=== PATIENT | female | born 1985 | race Caucasian/White ===

== ENCOUNTER → 2017-02-05 | Outpatient (CLI) | payer MEDICAID ==
--- NOTE | 2017-02-05 16:42 | Diagnostic Imaging Report ---
INDICATION: Anatomical survey. TECHNIQUE: Multiple real-time grayscale images were obtained over the gravid uterus. COMPARISON: None FINDINGS: Single live intrauterine at 27 weeks 1 day by today's sonographic measurements. presentation is breech. Placenta is located posteriorly within the fundus with no placenta previa. Normal three-vessel umbilical cord is noted. Normal amniotic fluid index measuring 13.1 cm. The cervix measures 3.9 cm and appears closed. Good visualization of the stomach, kidneys, bladder, aorta, brain, cord insertion, four-chamber heart, spine, and extremities. Biometrical measurements are as follows: Biparietal 6.78 cm, age 27 weeks 3 days. Head circumference 25.1 cm, age 27 weeks 2 days. Abdominal circumference 23.3 cm, age 27 weeks 5 days. Femur length 4.7 cm, age 25 weeks 5 days. Sonographic estimate age: 27 weeks 1 days. Sonographic estimated date of delivery: 05/06/2017. Estimated Weight: 1002 gm (+/- 146 gm). LMP percentile: 20%. heart rate: 147 beats per minute. number: 1 of 1. IMPRESSION: Single live intrauterine at 27 weeks 1 day by sonographic measurements. Normal anatomical survey. Dictated by: Dictated on workstation # [id number]
== END ==
LOC: RAD 15:00
PROVIDERS: ATTEND Family Medicine
DX: Z36 Encounter for antenatal screening of mother (principal); Z3A.27 27 weeks gestation of pregnancy
CPT/HCPCS: 76805